=== PATIENT | male | born 1990 | race Hispanic/Latino ===

== ENCOUNTER 2023-12-20 12:25 | Emergency (ER) | payer OTHER ==
[~2023-12-20] VITALS: Ht 182.9 cm; Wt 104.3 kg
[2023-12-20] MEDS: LIDOCAINE HCL-MPF 2% 5ML VIAL ONE (13:00)
[2023-12-20] MEDS ORDERED: MUPI22O TP (13:54)
[2023-12-20] MEDS: CEFTRIAXONE 1G VIAL IM ONE (14:07)
[2023-12-20 14:08] VITALS: BP 141/72; PULSE 84; RESP 18; O2SAT 99
== END 2023-12-20 14:12 | disposition home or self-care (01) ==
LOC: EEVIPCON 12:25 → EDH 12:25
DX: L01.00 Impetigo, unspecified (principal); I10 Essential (primary) hypertension; Z88.0 Allergy status to penicillin
CPT/HCPCS: 99283; 96372; J0696; J3490